=== PATIENT | male | born 1990 | race American Indian/Alaskan Native ===

== ENCOUNTER 2021-05-08 19:23 | Emergency (ER) | payer SELFPAY ==
[2021-05-08 21:18] VITALS: BP 117/69
== END 2021-05-09 00:05 | disposition left against medical advice (07) ==
LOC: ED 19:23
DX: R22.1 Localized swelling, mass and lump, neck (principal); Z53.21 Procedure and treatment not carried out due to patient leaving prior to being seen by health care provider

== ENCOUNTER 2021-05-09 10:34 | Emergency (ER) | payer SELFPAY ==
[2021-05-09 10:44] VITALS: BP 121/67
--- NOTE | 2021-05-09 12:49 | Emergency Department Report ---
Chief Complaint: Neck Pain/Injury Stated Complaint: NEED LUMP ON NECK CHECKED TO DONATE PLASMA Time Seen by Provider: 05/09/21 12:43 - HPI History of Present Illness: 31-year-old complaining of a lump to his left side of neck that he has had a year. Patient states that he went to donate plasma and they stated that he needs to have that light blood back before he is able to donate. Patient denies any pain or change of size in the lump or character. Denies any fever chills or nausea no vomiting. - Exam Vital Signs: Vital Signs 05/09/21 05/09/21 10:43 12:24 Temperature 97.7 F Pulse Rate 67 Respiratory 16 18 Rate Blood Pressure 121/67 O2 Sat by Pulse 100 Oximetry Physical Exam: General: Awake, appropriately interactive, no acute distress. Neck: Supple. Full range of motion intact. Left side lump nontender to touch nonfixed mobile Cardiovascular: Normal peripheral perfusion. Pulmonary: No respiratory distress. Patient is speaking normally without use of accessory muscles. Skin: No apparent rashes or lesions. Neurological: No facial asymmetry. Speech is clear. Follows commands. Patient is alert and oriented. Musculoskeletal: Full range of motion, Able to bear weight and ambulate without difficulty. Psych: Cooperative. Appropriate mood and affect. MSE screening note: Focused history and physical exam performed. Due to findings the following was ordered: 31-year-old complaining of a lump to his left side of neck that he has had a year. Patient states that he went to donate plasma and they stated that he needs to have that light blood back before he is able to donate. Patient denies any pain or change of size in the lump or character. Denies any fever chills or nausea no vomiting. ED Disposition for MSE Clinical Impression: Head and neck lymphadenopathy Disposition: [id number] TO HOME OR SELFCARE Is pt being admited?: No Does the pt Need Aspirin: No Condition: Stable Additional Instructions: Very important for you to follow-up with a primary care provider. Referrals: PRIMARY [facility]ARE [Primary Care Provider] - 3-5 Days [facility] [Provider Group] - 3-5 Days Forms: Work/School Release Form(ED)
== END 2021-05-09 13:29 | disposition home or self-care (01) ==
LOC: ED 10:34
DX: R59.1 Generalized enlarged lymph nodes (principal)
CPT/HCPCS: 99282